=== PATIENT | male | born 1995 | race Caucasian/White ===

== ENCOUNTER 2020-10-19 08:53 | Outpatient (CLI) | payer OTHER, SELFPAY ==
--- NOTE | 2020-11-05 10:20 | WPDHOMESLEEP ---
Sleep Study - Home Unattended Date of Study: 10/19/20 Ordering Provider: Rafiq Oviedo MD Interpreting Provider: Gypsy Laird MD Home Sleep Study Type: Apnea Link Air Height: 1.78 m Weight: 138.346 kg Body Mass Index: 43.7 Neck Circumference (inches): 17 [place]: 15 Reason for Sleep Study Poor quality sleep, nighttime awakenings Sleep History Tu Rodriguez is a 25 year old male who has had 7 years of poor quality sleep. He has Anxiety and depression on medications. He wakes up in the middle of the night. He always has excessive daytime sleepiness. There is a family history of sleep issues with his father having sleep apnea. He does not awaken from sleep feeling short of breath. He does not awaken at night with heartburn, belching or coughing. He denies snoring. He does not snore loudly enough that others complain about it. He does not have difficulty sleeping when he has a cold. He does not wake up gasping for breath at night. He does not have breathing problems at night observed by others. He rarely sweats excessively at night. He rarely notices his heart pounding or beating irregularly night. He frequently falls asleep during the day, rarely falls asleep involuntarily, never falls asleep while driving. He does not have loss of muscle tone with strong emotion. He occasionally has daytime difficulties due to excessive sleepiness. He does not feel paralyzed on waking or falling asleep. He does not have vivid dreamlike scenes upon awakening or falling asleep. He does not feel afraid to go to sleep. He occasionally has nightmares. He occasionally remembers his dreams. He occasionally has racing thoughts. He rarely feels sad or depressed. He constantly has anxiety. He does not have muscular tension. He rarely notices parts of his body jerking. He frequently kicks at night. He rarely has crawling and aching feelings in his legs. He never has any kind of leg pain during the night. He constantly has morning jaw pain. He frequently grinds his teeth during sleep. He occasionally has bothered by pain during the day, rarely is awakened by pain at night. He does not wake up feeling stiff in the morning with sore or achy muscles. He rarely wakes up with pain in the neck and spine. He has occasional morning headaches, fatigue, panic, nightmares and sexual problems. He reports difficulty concentrating. He has chronic sinusitis. Normal bedtime is between 12:00 midnight-1:00 a.m. falling asleep within 30 minutes, sometimes taking up to an hour. He has multiple awakenings at night. While awake, he checks the clock and then tries to return to sleep. He wakes the morning between 8:00 a.m. and 9:30 a.m.. On the weekends, his bedtime is later, between midnight and 2:00 a.m.. On weekends he wakes between 10 and 11:00 a.m.. He works shifts that are variable. He does take naps in the afternoon or evening. A short nap is not refreshing. He is usually drowsy in the morning for 1 hour or longer. He feels better in the evening compared to the morning. Habits: Never smoked tobacco. Caffeine 1-2 per day. No alcohol or recreational drugs. [facility] Past Medical History Medical History (Updated 11/05/20 @ 10:44 by Gypsy Laird MD) Anxiety and depression Body mass index [BMI] 45.0-49.9, adult (09/30/18) Dietary counseling and surveillance (02/15/16) Morbid (severe) obesity due to excess calories Pilonidal cyst Routine physical examination Screening for diabetes mellitus Screening for lipid disorders Family History Family History Father Hypertension Mother Hypertension Social History Social History Smoking status: Never smoker Tobacco type: e-cigarettes/vaping Second hand tobacco smoke exposure: No Alcohol intake: current Substance use: former Substance use type: marijuana Additional occupation/educatio
[2020-11-05 10:49] VITALS: BMI 43.7
== END 2020-10-23 09:22 | disposition home or self-care (01) ==
LOC: ANHCSM 10-23 08:54
PROVIDERS: PCP Family Medicine; Visit Provider Family Medicine
DX: G47.33 Obstructive sleep apnea (adult) (pediatric) (principal); G47.00 Insomnia, unspecified
CPT/HCPCS: 95806

== ENCOUNTER 2022-05-28 12:03 | Emergency (ER) | payer OTHER, SELFPAY ==
[2022-05-28 12:34] VITALS: BP 139/82; PULSE 133; RESP 16; TEMP 38.9; O2SAT 99
--- NOTE | 2022-05-28 12:42 | ED.URI ---
HPI - URI/Sore Throat General Chief Complaint: Upper Respiratory Infection Stated Complaint: covid sx Time Seen by Provider: 05/28/22 12:35 Source: patient Mode of arrival: ambulatory Limitations: no limitations History of Present Illness HPI Narrative: Tu is a 26-year-old male patient presenting to clinic today with complaints of runny nose, congestion, fatigue, and fever. He reports the symptoms may have been vaguely started last night however at 10:00 a.m. this morning he felt like a freight truck head hit him. He was recently told that his whole family was positive for influenza MD elicited complaint: fever, cough, rhinorrhea, nasal congestion and other Related Data Home Medications Medication Instructions Recorded Confirmed fluvoxamine 100 mg 100 mg PO QHS 07/31/20 05/28/22 capsule,extended release 24 hr paroxetine HCl 10 mg tablet 10 mg PO DAILY 07/31/20 05/28/22 risperidone 0.25 mg tablet 0.25 mg PO DAILY 07/31/20 05/28/22 cyclobenzaprine 10 mg tablet 10 mg PO TID 05/28/22 05/28/22 Allergies Allergy/AdvReac Type Severity Reaction Status Date / Time erythromycin base Allergy Unknown Unknown Verified 05/28/22 12:26 sertraline [From Zoloft] AdvReac Agitated Verified 05/28/22 12:26 Review of Systems Review of Systems: Pertinent positives per HPI. Patient denies any fever, chills, rash, headache, visual changes, dizziness, cough, shortness of breath, chest pain, palpitations, nausea, vomiting, diarrhea, constipation, abdominal pain, or any urinary issues. [facility] Past Medical History Medical History Anxiety and depression BMI 40.0-44.9, adult Body mass index [BMI] 45.0-49.9, adult (09/30/18) Dietary counseling and surveillance (02/15/16) Morbid (severe) obesity due to excess calories Pilonidal cyst Routine physical examination Screening for diabetes mellitus Screening for lipid disorders Family History Family History Father Hypertension Meningitis Mother Hypertension Social History Social History (Reviewed 05/28/22 @ 12:47 by WILMAN Salazar Smoking status: Former smoker Tobacco type: e-cigarettes/vaping Second hand tobacco smoke exposure: No Alcohol intake: current Substance use: former Substance use type: marijuana 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 Gender identity (if verbalized by the patient): Male Comments At the time of my signature, I reviewed and agree with the nursing past medical, surgical, social, and family history. There is no relevant family history pertinent to the patient complaint. Exam Narrative: General: Well-developed, morbidly obese, in no apparent distress Head: Normocephalic, atraumatic Eyes: Pupils equally round and reactive to light bilaterally, EOM intact, sclera and conjunctive clear, no discharge, lids normal Ears: TMs intact and clear, ear canals clear, no drainage, grossly hearing normal. Nose: Nares patent, clear nasal discharge, no inflammation, no sinus tenderness. Mouth: Oral pharynx without lesions or masses, good dentition, MMM. oropharynx red Neck: Supple, trachea midline, no enlargement of anterior or posterior cervical nodes, no thyroid masses or goiter palpable. Cardio: Regular rate and rhythm, s1 and s2 normal, no murmur appreciated. Resp: Clear to auscultation bilaterally, no rhonchi, rales, wheezing or rubs Course Course Emergency Course: Portions of this record may have been created with voice recognition software. Level of Care: Express Care Visit Vital Signs Vital signs: Vital Signs Temperature 38.9 C H 05/28/22 12:34 Pulse Rate 133 H 05/28/22 12:34 Respiratory Rate 16 05/28/22 12:34 Blood Pressure 139/82 05/28/22 12:34 Pulse Oximetry 99 05/28/22 12:34 Oxygen Delivery Room Air 05/28/22 12:34 Temperature 38
== END 2022-05-28 12:48 | disposition home or self-care (01) ==
PROVIDERS: Emergency Provider Nurse Practitioner Family
DX: J10.1 Influenza due to other identified influenza virus with other respiratory manifestations (principal); F41.8 Other specified anxiety disorders; E66.01 Morbid (severe) obesity due to excess calories; Z68.42 Body mass index [BMI] 45.0-49.9, adult; Z87.891 Personal history of nicotine dependence
CPT/HCPCS: 87804; 99213; G0463

== ENCOUNTER 2022-07-01 08:06 | Outpatient (CLI) | payer OTHER, SELFPAY ==
--- NOTE | 2022-07-29 17:55 | WPDSLEEPSTUD ---
Sleep Study Date of Study: 07/01/22 Ordering Provider: Jono Avalos NP Interpreting Physician: Linda Domínguez DO Sleep Study Type: Polysomnogram Height: 1.63 m Weight: 137.438 kg Body Mass Index: 52.0 Neck Circumference (inches): 18 [place]: 11 Reason for Sleep Study Multiple nighttime awakenings for past 5 years. Sleep History The patient is a 26-year-old male with anxiety, depression, TMJ and vaping use had a sleep study ordered his primary care for evaluation of sleep disturbances. The patient had a home sleep study on October 19, 2020 that showed an overall AHI of 8 with desaturation down to 88%. A CPAP titration study was recommended but was not completed. 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 He occasionally awakens from sleep short of breath. He denies awakening at night with heartburn, belching or cough. He frequently snores and is occasionally loud enough that others complain. He constantly has trouble sleeping when he has a cold. He rarely wakes up gasping for air throughout the night. He occasionally has breathing problems at night observed by himself or others. He frequently sweats excessively at night. He rarely has heart palpitations or irregular heartbeats during the night. He rarely falls asleep during the day and never while driving. He denies sleep paralysis, cataplexy and hypnagogic / hypnopompic hallucinations. He occasionally has trouble at school or work due to sleepiness. He denies feeling afraid of going to sleep. He occasionally has nightmares and occasionally remembers his dreams. He frequently has thoughts racing through his mind. He occasionally feels sad or depressed. He frequently has anxiety. He denies having muscular tension. He denies noticing parts of his body jerk. He denies kicking during the night. He denies having crawling and aching feelings in his legs and denies having leg pain during the night. He frequently grinds his teeth during sleep and frequently awakens with morning jaw pain. He is occasionally bothered by pain during the day but rarely awakened by pain during the night. He denies waking up feeling stiff in the morning. He denies waking up with sore or achy muscles. He occasionally wakes up with pain in the neck, spine or other joints. He goes to bed between 11:00 p.m. to midnight on weekdays and between midnight to 1:00 a.m. on the weekends. He takes him 15-60 minutes to fall asleep. He wakes up 3-4 times throughout the night for unknown reasons. He is able fall back asleep within a short period of time. He wakes up between 7-720 5:00 a.m. on weekdays and between 9-10 a.m. on the weekends. He typically gets 6 hours of sleep per night. He will stay in bed for 15 minutes after waking up in the morning. He currently lives with his mother. He does not consume any caffeinated beverages within 2 hours of bedtime. He does not engage in physical exercise before bedtime. He will read and watch television before falling asleep. He denies taking naps in the afternoon or the evening. He drinks 1 caffeinated beverage per day. He will drink up to 1 alcoholic beverage per day. He denies tobacco use. He currently vapes. He does use marijuana occasionally. [facility] Past Medical History Medical History Anxiety and depression BMI 40.0-44.9, adult BMI 50.0-59.9, adult Body mass index [BMI] 45.0-49.9, adult (09/30/18) Dietary counseling and surveillance (02/15/16) Morbid (severe) obesity due to excess calories Pilonidal cyst Routine physical examination Screening for diabetes mellitus Screening for lipid disorders Family History Family History Father Hypertension Meningitis Mother Hypertension Social History Social History Smoking status: Former smoker Tobacco type: e-cigarettes/vaping
[2022-07-29 18:00] VITALS: BMI 52.0
== END 2022-07-02 07:09 | disposition home or self-care (01) ==
LOC: ANHCSM 08:07
PROVIDERS: Visit Provider Nurse Practitioner Family
DX: G47.61 Periodic limb movement disorder (principal); G47.33 Obstructive sleep apnea (adult) (pediatric)
CPT/HCPCS: 95810

== ENCOUNTER 2022-08-25 17:16 | Emergency (ER) | payer OTHER, SELFPAY ==
--- NOTE | ~2022-08-25 | CT_ITS ---
EXAMINATION: CT facial bones w con DATE: 08/25/2022 22:52 INDICATION: Dental pain, trismus TECHNIQUE: Computed tomography (CT) of the facial bones and maxillofacial region was performed with 7 5 cc of Omnipaque 350 intravenous contrast. The dose-length product (DLP) was 347.37 mGy-cm. Automate d exposure control and iterative reconstruction technique were employed. COMPARISON: None. FINDINGS: No significant dental disease is identified. There is no abnormal enhancement after contras t administration. The facial bones are unremarkable. There is mild cervical lymphadenopathy of unclea r etiology, likely reactive. IMPRESSION: 1. Mild cervical lymphadenopathy of unclear etiology, likely reactive. Clinical follow-up is recommen ded. Reviewed, dictated and finalized at location F. IMPRESSION: 1. Mild cervical lymphadenopathy of unclear etiology, likely reactive. Clinical follow-up is recommended.
[2022-08-25 17:29] VITALS: BP 167/115; PULSE 109; RESP 16; TEMP 37.4; O2SAT 99
[2022-08-25 20:28] VITALS: BP 166/108; PULSE 128; RESP 18; TEMP 36.8; O2SAT 100
--- NOTE | 2022-08-25 21:58 | ED.DENTAL ---
HPI - Dental/Oral General Chief complaint: Dental/Oral Stated complaint: dental pain Time Seen by Provider: 08/25/22 21:06 History of Present Illness HPI Narrative: 26-year-old male with a history of TMJ disorder reports for evaluation of left jaw pain and left-sided dental pain for the past 2 to 3 days. Patient reports he was diagnosed with TMJ 2 years ago by his dentist, he takes ibuprofen, Tylenol, Flexeril and wears a mouthguard at night. Patient reports the past 2 days his symptoms have worsened and he has developed upper and lower left sided dental pain. He reports pain and difficulty opening his mouth with clicking inhis L jaw. Denies fever, body aches, chills, chest pain or shortness of breath, tongue or lip swelling, difficulty breathing, sore throat, nasal congestion. Patient has taken Tylenol and ibuprofen today with some relief. Reports he has a dentist appointment in 1 week. Related Data Home Medications Medication Instructions Recorded Confirmed fluvoxamine 100 mg 100 mg PO QHS 07/31/20 07/29/22 capsule,extended release 24 hr paroxetine HCl 10 mg tablet 10 mg PO DAILY 07/31/20 07/29/22 risperidone 0.25 mg tablet 0.25 mg PO DAILY 07/31/20 07/29/22 cyclobenzaprine 10 mg tablet 10 mg PO TID 05/28/22 07/29/22 Allergies Allergy/AdvReac Type Severity Reaction Status Date / Time erythromycin base Allergy Unknown Unknown Verified 08/25/22 20:36 sertraline [From Zoloft] AdvReac Agitated Verified 08/25/22 20:36 Review of Systems Review of Systems: CONSTITUTIONAL: Denies fever, chills EYES: Denies visual changes, redness, or discharge. ENT: Denies rhinorrhea, congestion, sore throat, or otalgia. CARDIOVASCULAR: Denies chest pain, palpitations, or edema. RESPIRATORY: Denies cough or dyspnea. GASTROINTESTINAL: Denies abdominal pain, nausea, vomiting, or diarrhea. GENITOURINARY: Denies dysuria or hematuria. SKIN: Denies rash or itching. MUSCULOSKELETAL: Denies back pain, joint pain, or myalgia. NEUROLOGIC: Denies headache, numbness, dizziness, or weakness. PSYCHIATRIC: Denies anxiety or depression. [facility] Past Medical History Medical History Anxiety and depression BMI 40.0-44.9, adult BMI 50.0-59.9, adult Body mass index [BMI] 45.0-49.9, adult (09/30/18) Dietary counseling and surveillance (02/15/16) Morbid (severe) obesity due to excess calories Pilonidal cyst Routine physical examination Screening for diabetes mellitus Screening for lipid disorders Family History Family History Father Hypertension Meningitis Mother Hypertension Social History Social History Smoking status: Former smoker Tobacco type: e-cigarettes/vaping Second hand tobacco smoke exposure: No Alcohol intake: current Substance use: former Substance use type: marijuana Living arrangements: with family Occupation/Education: occupation 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 Gender identity (if verbalized by the patient): Male Exam Narrative: GENERAL: Well-appearing, well-nourished, and in no acute distress. Patient speaking in full sentences. He is sitting on the exam table pleasant and conversational. HEAD: Normocephalic, atraumatic. EYES: PERRLA and EOMI. ENT: Nares clear, no rhinorrhea or epistaxis. Mucous membranes moist. Oropharynx without tonsillar hypertrophy exudate or other lesions. Tenderness to dentition and gingiva on palpation of L maxillary and mandibular molars. No caries or fractured teeth. Gingiva are not erythematous, no evidence of periapical abscess. No fluctuance or areas of induration palpated to buccal mucosa. Floor of mouth is hard, but without crepitus or erythema. Patient does have trismus. Tolerating secretions. Tenderness overlying the left TMJ, no crepitus appreciated. No
[2022-08-25] MEDS: KETOROLAC 30 MG/ML VIAL (*BKC) IV PUSH (22:23)
[2022-08-25] MEDS: SODIUM CHLORIDE 0.9% IV 1,000 ML 999 ML IV CONT (22:29)
[2022-08-25 22:31] LABS: Basophils Absolute Auto 0.1 K/mm3 (0.0-0.1); Basophils Percent Auto 0.4 % (0.2-1.2); Eosinophils Absolute Auto 0.1 K/mm3 (0-0.3); Eosinophils Percent Auto 0.5 % (0-4.4); Hematocrit 45.4 % (42.0-52.0); Hemoglobin 15.5 g/dL (14.0-18.0); Immature Granulocyte Absolute 0.06 K/mm3 (0.00-0.031); Immature Granulocyte Percent A 0.4 % (0-0.5); Mean Corpuscular HGB Conc 34.1 g/dl (32-36); Mean Corpuscular Hemoglobin 27.2 pg (26-34); Mean Corpuscular Volume 79.6 fl (80-100); Monocytes Absolute Auto 0.8 K/mm3 (0.1-0.6); Monocytes Percent Auto 5.5 % (2.6-8.5); Neutrophils Absolute Auto 10.7 K/mm3 (1.3-6.7); Neutrophils Percent Auto 71.2 % (45.5-73.1); Platelet Count Result 359 k/mm3 (150-375); Red Cell Distribution Width 13.3 % (11.5-14.5)
[2022-08-25 22:41] LABS: Alanine Aminotransferase 31 U/L (6-50); Albumin Level 5.1 g/dL (3.5-5.1); Alkaline Phosphatase 98 U/L (38-126); Anion Gap 8 mmol/L (8-16); Aspartate Amino Transferase 28 U/L (17-59); Bilirubin,Total 0.6 mg/dL (0.2-1.3); Blood Urea Nitrogen 13 mg/dL (9-20); Calcium 9.7 mg/dL (8.4-10.2); Carbon Dioxide 30 mmol/L (22-30); Chloride 100 mmol/L (98-107); Estimated CRCL calculation 170 ml/min; Estimated Glomerular Filt Rate > 60; Glucose 100 mg/dL (65-110); Potassium 4.1 mmol/L (3.4-5.0); Sodium 138 mmol/L (137-145)
[2022-08-25 23:00] VITALS: BP 135/90; PULSE 92; RESP 20; O2SAT 100
[2022-08-25] MEDS: MORPHINE SULFATE (*CRX) 4 MG/ML INJ IV PUSH (23:44)
== END 2022-08-26 00:28 | disposition home or self-care (01) ==
PROVIDERS: Emergency Provider Physician Assistant; PCP Family Medicine
DX: M26.602 Left temporomandibular joint disorder, unspecified (principal); K08.89 Other specified disorders of teeth and supporting structures; F41.9 Anxiety disorder, unspecified; F32.A Depression, unspecified; E66.01 Morbid (severe) obesity due to excess calories; Z68.41 Body mass index [BMI] 40.0-44.9, adult; Z87.891 Personal history of nicotine dependence
CPT/HCPCS: 36415; 70487; 80053; 85025; 96361; 96374; 96375; 99284; J1885; J2270; J7030; Q9967

== ENCOUNTER 2023-12-21 15:34 | Outpatient (CLI) | payer OTHER, SELFPAY ==
--- NOTE | ~2023-12-21 | MR_ITS ---
EXAMINATION: MR brain/brain stem wo/w con DATE: 12/21/2023 16:45 INDICATION: Left trigeminal neuralgia TECHNIQUE: Magnetic resonance imaging (MRI) of the brain and brainstem was performed without and with 20 mL Multihance intravenous contrast. Sequences included sagittal and axial T1-weighted SE, axial d iffusion-weighted FS SE, axial 3D SWAN, axial T2-weighted FLAIR, 3D axial T1-weighted [place], coronal FIESTA, coronal T1-weighted IAC, axial T2-weighted PROPELLER and postcontrast axial and coronal T1-we ighted FSE, coronal T1-weighted IAC and 3-D axial T1-weighted ARRIAGA. Apparent diffusion coefficient ( ADC) maps were created. COMPARISON: None. FINDINGS: There are no areas of restricted diffusion to suggest acute infarction. No intracranial hemorrhage or abnormal intracranial mass lesion. There are scattered areas of nonspecific increased T2-weighted si gnal intensity in the cerebral white matter, predominantly involving the deep and periventricular whi te matter. There are no intraparenchymal signal abnormalities seen on the other pulse sequences. The ventricles are symmetric and normal in size. There are no abnormal extra-axial fluid collections. Enh ancement as well as flow voids on T2-weighted sequences are seen in the cerebral arteries consistent with their expected patency. There are patent bilateral posterior communicating arteries. Visualized orbits and soft tissues are unremarkable. There are no areas of abnormal enhancement on the post cont rast images. Normal seventh/eighth cranial nerve complexes. No cerebellopontine angles masses. No evidence of ma stoid or middle ear fluid. No abnormal masses or enhancement along the bilateral trigeminal nerves. T he craniocaudal oriented left lateral brachial vein across orthogonal a contacting contact the latera l margin of the proximal most left trigeminal nerve at its pontine origin best appreciated on the pos tcontrast 3-D axial T1 ARRIAGA sequence (series 14, images 47-49). No arterial contact along the left o r right trigeminal nerves. IMPRESSION: 1. The left lateral brachial vein contact the proximal most left trigeminal nerve at its pontine orig in. No impinging arteries, masses or abnormally enhancing lesions identified along the course of the bilateral trigeminal nerves. 2. Normal brain. Reviewed, dictated and finalized at location A. IMPRESSION: 1. The left lateral brachial vein contact the proximal most left trigeminal ner ve at its pontine origin. No impinging arteries, masses or abnormally enhancing lesions identified along the course of the bilateral trigeminal nerves. 2. Normal brain.
== END 2023-12-21 15:35 | disposition home or self-care (01) ==
LOC: ANHIMG 15:37
PROVIDERS: PCP Family Medicine; Visit Provider Student in an Organized Health Care Education/Training Program
DX: G50.0 Trigeminal neuralgia (principal)
CPT/HCPCS: 70553; A9577